=== PATIENT | female | born 1945 | race Caucasian/White ===

== ENCOUNTER 2020-03-03 17:35 | Observation (INO) | payer MEDICARE, SELFPAY ==
--- NOTE | ~2020-03-03 | XR_ITS ---
EXAMINATION: XR chest 1V portable DATE: 03/03/2020 18:22 INDICATION: Fever TECHNIQUE: frontal view of the chest was obtained. COMPARISON: None FINDINGS: The lungs are clear with no focal airspace opacities, pulmonary edema, pleural effusion or pneumothor ax. The cardiomediastinal silhouette is normal. Visualized bones and soft tissues are unremarkable. IMPRESSION: 1. No acute cardiopulmonary disease. Reviewed, dictated and finalized at location A.
--- NOTE | 2020-03-03 17:57 | ED.AMS ---
HPI - Altered Mental Status General Chief Complaint: Altered Mental Status Stated Complaint: fever Source: family ([id number]) Mode of arrival: EMS Limitations: altered mental status History of Present Illness HPI narrative: [id number] is the source of information. This 74-year-old female with a history of type 2 diabetes, seizure disorder, depression hypothyroidism, hyperlipidemia developed a temperature of 101.8 yesterday. Her behavior was normal until 4:30 PM. today when her temperature was 102 at which time she was sitting in a chair covered with a blanket, shivering. Her normal state is described as bubbly and cheerful. She moved in with her son about 9 days ago. She has not had her medicine since arriving. Related Data Home Medications Medication Instructions Recorded Confirmed glimepiride 4 mg PO BID 03/03/20 03/03/20 levetiracetam 500 mg PO BID 03/03/20 03/03/20 levothyroxine 50 mcg PO DAILY 03/03/20 03/03/20 metformin 1,000 mg PO BID 03/03/20 03/03/20 sertraline 50 mg PO DAILY 03/03/20 03/03/20 simvastatin 40 mg PO HS 03/03/20 03/03/20 Allergies Allergy/AdvReac Type Severity Reaction Status Date / Time No Known Drug Allergies Allergy Verified 03/03/20 22:23 Review of Systems Review of Systems: Narrative: All information was obtained from [id number] and is in the note. Because of mental status alteration unable to complete review of systems. [facility] Past Medical History Medical History (Updated 03/04/20 @ 06:13 by Gerardo Medrano MD) Depression Diabetes 1.5, managed as type 2 Seizure Social History Social History Years smoked: 20 Smoking status: Current some day smoker Tobacco type: cigarettes Second hand tobacco smoke exposure: Yes Additional smoking assessment comments: Patient states that she currently smokes but not daily Alcohol intake: never Substance use: never Gender identity (if verbalized by the patient): Female Spiritual care concerns: No Exam Const: General: no acute distress Other: Eyes are open. She answers I do not know to most questions. HENMT: Face and sinus: no sinus tenderness Mouth: Yes moist mucous membranes Eyes: Conjunctivae: conjunctivae normal EOM: EOMs intact bilaterally Neck: Neck: no lymphadenopathy Other: Neck is supple Chest: Chest palpation & inspection: normal inspection of the chest Resp: Effort & Inspection: normal respiratory effort and not tachypneic Auscultation: clear to auscultation bilaterally Cardio: Rate: regular rate Rhythm: regular rhythm GI: GI Palp: Yes Soft to palpation, No Tenderness to palpation present (GI), No Guarding due to palpation present (GI) and No Rigid due to palpation Back/Spine/Pelvis: Back: no CVA tenderness Skin: Rashes: no rashes Wounds: no wounds Neuro: General: no focal motor deficits and CN's II-XI intact bilaterally Cranial nerves: Yes Nystagmus not present Speech: normal speech Other: oriented to place. She does not know her age or date of . She does not know why she is here. Extrem: General: normal to inspection and no pedal edema Psych: Appearance: grossly normal Affect: normal affect Attitude: cooperative Thought content: Yes Normal thought content present Course Course Emergency Course: IVF given in E.D. After 90 minutes patient lucid. Recalls developing chills earlier in day. Alert and oriented x 3. Because of altered mental status and fever, will admit for observation and IV antibiotics. Vital Signs Vital signs: Vital Signs Temperature 38.7 C H 03/03/20 17:58 Pulse Rate 94 03/03/20 17:58 Respiratory Rate 14 03/03/20 17:58 Blood Pressure 139/82 03/03/20 17:58 Pulse Oximetry 97 03/03/20 17:58 Temperature 36.7 C 03/04/20 04:00 Pulse Rate 63 03/04/20 04:00 Respiratory Rate 20 03/04/20 04:00 Blood Pressure 132/70 03/04/20 04:00 Pulse Oximetry 98 03/04/20 04:00 MDM - Altered Mental Status Medical R
[2020-03-03 17:58] VITALS: BP 139/82; PULSE 94; RESP 14; TEMP 38.7; O2SAT 97
[2020-03-03 18:12] LABS: Basophils Absolute Auto 0.03 K/mm3 (0.00-0.10); Basophils Percent Auto 0.3 % (0.0-1.0); Eosinophils Absolute Auto 0.01 K/mm3 (0.02-0.50); Eosinophils Percent Auto 0.1 % (1.0-6.0); Hematocrit 37.9 % (35.0-42.0); Hemoglobin 12.3 g/dL (11.7-13.8); Immature Granulocyte Absolute 0.03 K/mm3 (0.00-0.00); Immature Granulocyte Percent A 0.3 % (0.0-0.0); Lymphocytes Percent Auto 7.5 % (18.0-42.0); Mean Corpuscular HGB Conc 32.5 g/dL (32.0-36.0); Mean Corpuscular Hemoglobin 28.6 pg (27.0-31.0); Mean Corpuscular Volume 88.1 fL (78.0-102.0); Mean Platelet Volume 11.2 fl (9.2-11.8); Monocytes Absolute Auto 0.86 K/mm3 (0.10-0.90); Monocytes Percent Auto 9.2 % (2.0-11.0); Neutrophils Absolute Auto 7.7 K/mm3 (1.7-7.2); Neutrophils Percent Auto 82.6 % (50.0-70.0); Platelet Count Result 232 K/mm3 (150-420); Red Cell Distribution Width 12.1 % (11.6-14.4); White Blood Count 9.3 K/mm3 (4.8-10.8)
--- NOTE | 2020-03-03 18:15 | ECG_ITS ---
Measurements Intervals [place] Rate: 93 P: 33 AR: 149 QRS: -22 QRSD: 74 T: 37 QT: 339 QTc: 423 Interpretive Statements SINUS RHYTHM BORDERLINE T WAVE ABNORMALITY- DIFFUSE LEADS BASELINE ARTIFACT- II, III, AVF BORDERLINE ECG Electronically Signed On 03-05-2020 7:28:48 CDT by Tyler Mahan D.O.
[2020-03-03] MEDS: SODIUM CHLORIDE 0.9% IV 1,000 ML 999 ML IV CONT (18:19)
[2020-03-03 18:27] LABS: Alanine Aminotransferase 17 U/L (14-59); Albumin Level 3.2 g/dL (3.4-5.0); Alkaline Phosphatase 89 U/L (46-116); Anion Gap 15.1 mmol/L (7-16); Aspartate Amino Transferase 13 U/L (15-37); Bilirubin,Total 0.5 mg/dL (0.00-1.00); Blood Urea Nitrogen 15 mg/dL (7-18); Calcium 8.8 mg/dL (8.5-10.1); Carbon Dioxide 26 mmol/L (21-32); Chloride 98 mmol/L (98-108); Estimated Glomerular Filt Rate 43; Glucose 280 mg/dL (70-99); Osmolality Calculated 290 mOsm/kg (285-295); Potassium 4.1 mmol/L (3.5-5.1); Sodium 135 mmol/L (136-145); Total Protein 7.3 g/dL (6.4-8.2)
[2020-03-03 18:32] LABS: Lactic Acid 1.3 mmol/L (0.4-2.0)
[2020-03-03 18:38] LABS: Thyroid Stimulating Hormone 1.11 uIU/mL (0.36-3.74)
[2020-03-03 18:57] LABS: Troponin I < 0.02 ng/mL (0.00-0.056)
[2020-03-03] MEDS: ACETAMINOPHEN 325 MG TABLET 650 MG PO (19:02)
[2020-03-03 19:04] LABS: Amphetamine Screen Urine Negative (Negative); Barbiturate Screen Urine Negative (Negative); Benzodiazepines Screen Urine Negative (Negative); Cannabinoid Screen Urine Negative (Negative); Cocaine Screen Urine Negative (Negative); Methadone Screen Urine Negative (Negative); Opiate Screen Urine Negative (Negative); Phencyclidine Screen Urine Negative (Negative)
[2020-03-03 19:07] LABS: Add Urine Microscopic? YES; Appearance Urine Cloudy (Clear); Bilirubin Urine Negative (Negative); Blood Urine 1+ (Negative); Color Urine Yellow (Yellow); Glucose Urine UA 1+ (Negative); Ketones Urine Trace (Negative); Leukocyte Esterase Ur 1+ (Negative); Nitrate Urine Negative (Negative); Protein Urine Trace (Negative); Urobilinogen Urine 0.2 mg/dL (0.2-1.0)
[2020-03-03 19:13] LABS: WBC Urine 21-30 /hpf (0-3)
[2020-03-03 19:14] LABS: Bacteria Urine 3+ /hpf; Mucus Urine None seen /lpf; Squamous Epithelial Cell Urine Rare /hpf (Few)
[2020-03-03 20:31] VITALS: BP 139/74; PULSE 87; RESP 15; O2SAT 100
[2020-03-03 20:40] VITALS: BP 126/68; PULSE 79; RESP 18; TEMP 37.4; O2SAT 97
--- NOTE | 2020-03-03 20:40 | ADMGEN ---
This patient, Que Almaguer, was admitted to 2nd Floor Room 211-1. Patient/family oriented to hospital policies and general routines including ID bracelet, bed and alarms, visiting hours, pain management, procedures, bathroom and other care routines, personal items, smoking policy, room service/diet, and visiting hours. Valuables list has been completed. Information on how to activate the Rapid Response Team has been discussed. Patient/Family are encouraged to report perceived risks to care and to ask questions if they do not understand what they are told or what they should do.
[2020-03-03 21:00] VITALS: BMI 33.9
--- NOTE | 2020-03-03 21:00 | PC.NURSE ---
Patient recently moved from [facility] and moved in with her son, Marie and her daughter in law, Alyssa. She does not have a PCP in the area yet. She states that she has been seeing a Dr. Dow in [place]. She has a daughter, Shanae Rose, in [place] that we are to give no information to per the patient. PAtient gave Florian as a password.
[2020-03-03] MEDS: SIMVASTATIN 10 MG TABLET 40 MG PO (22:53)
[2020-03-03] MEDS: SODIUM CHLORIDE 0.9% IV 1,000 ML 125 ML IV CONT (22:54)
[2020-03-03 23:28] LABS: Glucose Point of Care 308 (65-105)
[2020-03-04] VITALS: BP 128/70; PULSE 60; RESP 18; TEMP 36.4; O2SAT 97
[2020-03-04 04:00] VITALS: BP 132/70; PULSE 63; RESP 20; TEMP 36.7; O2SAT 98
[2020-03-04] MEDS: LEVOTHYROXINE SODIUM 50 MCG TABLET PO (05:14)
[2020-03-04] MEDS: SODIUM CHLORIDE 0.9% IV 1,000 ML 125 ML IV CONT (06:33)
[2020-03-04 08:00] VITALS: BP 142/78; PULSE 64; RESP 18; TEMP 36.8; O2SAT 97
[2020-03-04] MEDS: SERTRALINE HCL 50 MG TABLET PO (08:47)
[2020-03-04] MEDS: levETIRAcetam 500 MG TABLET PO (08:47)
[2020-03-04] MEDS: ENOXAPARIN 40 MG/0.4 ML SYRINGE SUB-Q (08:47)
--- NOTE | 2020-03-04 08:51 | PM.IMHP ---
H&P: HPI History of Present Illness Chief complaint: fever Narrative: Que Almaguer is a 74 year old female admitted due to altered mental status via EMS after her son Marie and [id number] Alyssa called them. Que is a 74-year-old female with a history of type 2 diabetes, seizure disorder, depression hypothyroidism, and hyperlipidemia. In the ED she was diagnosed with acute pyelonephritis, acute UTI, altered mental status. She developed a temperature of 101.8 yesterday. Her behavior was normal until 4:30 PM. yesterday when her temperature was 102, at which time she was sitting in a chair covered with a blanket, shivering. Her normal state is described as bubbly and cheerful. She moved in with her son about 9 days ago. She had been living with her daughter in [place], [place], but her daughter did not bring her medications with her to her son Marie's home. She has not had her medicine since arriving. She last filled her prescriptions in January 2020 and received a 90 day supply. Today I have examined the patient Que, she is alert and oriented x3, I actually assisted her from the chair to her bed and she did fairly well. I had physical therapist evaluate her for discharge planning, he stated she was safe to go home with her walker but he would recommend outpatient physical therapy which I have ordered at discharge. she has not had any altered mental status according to the nursing staff since her admission. Also no sign of seizures. I have ordered a full neuro check to be done and documented today. As well as orthostatics. She does not appear to be severely depressed either, is easy to talk to and pleasant in conversation. I did speak to her daughter in-law reset this morning who stated that Que checked her blood sugars every morning as soon as she was awake, and that they were controlled and less than 200 at their house. I found that odd since she had been without her metformin and her Glimepiride for the last 9 days. So I checked an A1c and found to be 8.2. I will discharge her on metformin a 1000 mg p.o. b.i.d., but will hold the glimepiride to avoid hypoglycemia and also give her kidneys time to recover. Her creatinine at admission yesterday was 1.21 and it has improved today to 1.13. I have instructed her to check her glucose levels at home twice a day, documenting them in a log, so that she can discuss them with her new PCP Dr. Godfrey. She has improved well with the IV fluids and will need to stay hydrated after discharge. Her UA showed a significant urinary tract infection, urine cultures and blood cultures remain pending. We will discharge her today on Cipro as she would like to go home and is hemodynamically stable enough to do so. She was given a 750 mg dose of Levaquin last night, so I will continue her on 500 mg of Cipro daily for the next 7 days to treat her UTI. Her white count on admission was 9.3 and today 7.1. She had a fever at admission but none since. Her troponin and TSH and urine tox screens are all clear and within normal limits. Her EKG was sinus rhythm. Her chest x-ray was clear with no acute findings. She has had no cough, her lungs sound clear, but there is no way to know she has been exposed to any other COVID positive people, so she has been COVID tested and those results are pending. Marie and Alyssa are at phone # [phone]. Review of Systems Review of Systems: All systems reviewed & are unremarkable except as noted in HPI and below Constitutional: Constitutional: Reports as per HPI, Reports chills, Denies excessive sweating, Reports fever(s), Denies headache(s), Denies increased appetite, Reports malaise, Denies snoring, Reports weakness and Denies weight gain Eyes: Eyes: Reports as per HPI, Denies exophthalmos, Denies diplopia, Denies floaters and Denies loss of peripheral vision ENT: Reports as per HPI, Denies facial pain, Denies headache(s), Denies epistaxis, Denies odynophagia and Denies
[2020-03-04 09:01] VITALS: BP 131/63; PULSE 61
[2020-03-04 11:48] LABS: Glucose Point of Care 287 (65-105)
[2020-03-04 11:53] VITALS: BP 131/70; PULSE 73
[2020-03-04 11:54] VITALS: BP 135/63; PULSE 81; RESP 20; TEMP 37; O2SAT 96
[2020-03-04 12:40] LABS: Basophils Absolute Auto 0.02 K/mm3 (0.00-0.10); Basophils Percent Auto 0.3 % (0.0-1.0); Eosinophils Absolute Auto 0.04 K/mm3 (0.02-0.50); Eosinophils Percent Auto 0.6 % (1.0-6.0); Hematocrit 36.2 % (35.0-42.0); Hemoglobin 11.5 g/dL (11.7-13.8); Immature Granulocyte Absolute 0.02 K/mm3 (0.00-0.00); Immature Granulocyte Percent A 0.3 % (0.0-0.0); Lymphocytes Absolute Auto 1.34 K/mm3 (1.10-4.50); Lymphocytes Percent Auto 18.8 % (18.0-42.0); Mean Corpuscular HGB Conc 31.8 g/dL (32.0-36.0); Mean Corpuscular Hemoglobin 29.2 pg (27.0-31.0); Mean Corpuscular Volume 91.9 fL (78.0-102.0); Mean Platelet Volume 10.9 fl (9.2-11.8); Monocytes Absolute Auto 0.56 K/mm3 (0.10-0.90); Monocytes Percent Auto 7.9 % (2.0-11.0); Neutrophils Absolute Auto 5.1 K/mm3 (1.7-7.2); Neutrophils Percent Auto 72.1 % (50.0-70.0); Platelet Count Result 226 K/mm3 (150-420); Red Blood Count 3.94 M/mm3 (4.20-5.40); Red Cell Distribution Width 12.2 % (11.6-14.4); White Blood Count 7.1 K/mm3 (4.8-10.8)
[2020-03-04 12:49] LABS: Hemoglobin A1C 8.2 % (<5.7)
[2020-03-04 13:01] LABS: Alanine Aminotransferase 16 U/L (14-59); Albumin Level 2.8 g/dL (3.4-5.0); Alkaline Phosphatase 87 U/L (46-116); Aspartate Amino Transferase 15 U/L (15-37); Bilirubin,Total 0.4 mg/dL (0.00-1.00); Blood Urea Nitrogen 12 mg/dL (7-18); Calcium 7.8 mg/dL (8.5-10.1); Carbon Dioxide 30 mmol/L (21-32); Chloride 104 mmol/L (98-108); Estimated Glomerular Filt Rate 47; Glucose 248 mg/dL (70-99); Osmolality Calculated 299 mOsm/kg (285-295); Sodium 141 mmol/L (136-145); Total Protein 6.3 g/dL (6.4-8.2)
--- NOTE | 2020-03-04 13:17 | PC.NURSE ---
4 Units humalog sc given left upper arm. Blood sugar 287
--- NOTE | 2020-03-04 14:11 | PM.DS ---
DS: Diagnosis Admitting Diagnosis Admitting Diagnosis: Other abnormalities of gait and mobility Discharge Diagnosis (1) UTI (urinary tract infection): Code(s): N39.0 - Urinary tract infection, site not specified Status: Acute Assessment and Plan: her urinalysis was positive for UTI urine and blood cultures have been collected and are pending she was treated with 750 mg of Levaquin IV last night she has been rehydrated with IV fluids she is to follow-up with a primary care provider and discuss her urine culture results with him she is to continue controlling her daily glucose levels through glucometer checks and metformin dosing as well as follow-ups to her PCP she may also take dhca-fqw-gvuxpwy cranberry extract her white count is 9.3 at admission has improved to 7.1 today, she had a fever at her admission but none since she will be discharged on 500 mg p.o. Cipro daily for 7 days and encouraged to stay well hydrated with oral fluids (2) Acute renal failure: Code(s): N17.9 - Acute kidney failure, unspecified Status: Acute Assessment and Plan: her creatinine at admission was 1.21 and that improved today to creatinine of 1.13 currently holding glimepiride due to her renal dysfunction at admission her blood pressures and MAPs are adequate and her heart rate is within normal limits, her troponin was negative. her llkhzuuv-ea-goc Alyssa denied any history of kidney stones and denied any history of renal failure her vtigdywf-ia-zjd Alyssa stated that they will be requesting medical records from her physician Dr. Dow in [place] no flank pain at this time recovering from dehydration and UTI And has received IV fluids, taking in over 1 L since admission she will need to continue monitoring her renal function through her primary care provider after discharge (3) AMS (altered mental status): Code(s): R41.82 - Altered mental status, unspecified Status: Acute Assessment and Plan: Hemodynamically stable with appropriate vital signs neurological check documented and within normal limits orthostatic blood pressures and vital Signs completed and without concerning changes no signs of seizures TSH is within normal limits at 1.11, urine tox screen is negative for any concerns. , her lactic is 1.3 and her LFTs are all within normal limits patient with appropriate neuro status, A&O x3, health history recall is appropriate today understanding and conversing with nursing staff appropriately throughout the day during conversations she is to follow-up with a new primary care provider Dr. Godfrey with her son's assistance she is to be discharged into her son and mtqpzejz-bi-wfr's 11/05 care DS: Summary Time Spent with Patient Time attestation: Total time spent providing and/or coordinating discharge services: Exam Const: General: comfortable, no acute distress and confusion Orientation/consciousness: confusion Other: HENMT: Face and sinus: no sinus tenderness Mouth: Yes moist mucous membranes Eyes: General: appearance normal, both eyes and all related structures Conjunctivae: conjunctivae normal Pupils: Equal, round and reactive pupils present EOM: EOMs intact bilaterally Neck: Neck: no lymphadenopathy Other: Neck is supple Chest: Chest palpation & inspection: normal inspection of the chest Resp: Effort & Inspection: normal respiratory effort and not tachypneic Auscultation: clear to auscultation bilaterally, no crackles, no rales, no rhonchi, no wheezes and lung sounds not diminished Cardio: Rate: regular rate, not bradycardic and not tachycardic Rhythm: regular rhythm Heart sounds: no murmurs GI: Inspection: non-distended Auscultation: normal bowel sounds and bowels sounds normal : General: Yes no CVA tenderness Urinary Catheter: Urinary Catheter: urine clear Back/Spine/Pelvis: Back: no CVA tenderness Skin: General skin exam: normal color Rashes: no r
--- NOTE | 2020-03-05 00:10 | PM.EVENT ---
Event Note Event Note Event Note: Patient states he feels much better. She denies flank pain, nausea, vomiting and fever. Alert and oriented. Sitting at breakfast. Regular rate rhythm heart murmur or gallop. Lungs clear to auscultation bilaterally. Abdomen is soft and nontender. Mild bilateral lower extremity. In edema. Extremities are warm dry and pink. May continue UTI treatment at home with close follow-up. I have examined the patient reviewed the chart. I discussed the patient's care with A Tevin PHILLIPS and agree with her assessment and plan.
== END 2020-03-04 14:25 | disposition home or self-care (01) ==
LOC: CHSED 18:16 → CHS2ND 20:09
PROVIDERS: Nurse Practitioner; Admitting Provider Family Medicine; Emergency Provider Family Medicine; Visit Provider Family Medicine
DX: N39.0 Urinary tract infection, site not specified (principal); E86.0 Dehydration; E11.9 Type 2 diabetes mellitus without complications; E03.9 Hypothyroidism, unspecified; E78.5 Hyperlipidemia, unspecified; R56.9 Unspecified convulsions; F32.9 Major depressive disorder, single episode, unspecified; F17.210 Nicotine dependence, cigarettes, uncomplicated; B96.20 Unspecified Escherichia coli [E. coli] as the cause of diseases classified elsewhere
CPT/HCPCS: 51701; 36415; 71045; 80053; 80307; 81001; 83036; 83605; 84443; 84484; 85025; 87040; 87077; 87086; 87088; 87186; 93005; 96361; 96365; 96372; 97161; 99283; 99285; A9270; G0378; J1650; J1815; J1956; J7030

== ENCOUNTER 2020-03-06 13:00 | Outpatient (RCR) | payer MEDICARE, SELFPAY ==
--- NOTE | 2020-03-06 14:02 | OTOPEVAL ---
Thank you for referring Que Almaguer to [facility]. Please review, sign, date and return this plan of care FELIX. I agree with and certify that the following plan of care is medically necessary. Referring Physician Date Admitting Provider: Attending Provider: Terra Abarca NP Referring Provider: *OT Outpatient Evaluation Start: 03/06/20 13:05 Freq: Status: Active Protocol: [place] 03/06[place] 13:05 [facility] [place]06/[place] 14[place] [facility] [id number] Therapy Assessment Status Assessment Status Assessment Status Evaluation Outpatient Past Medical History Neurological History Hx Seizures Yes Cardiovascular History Hx Hypercholesterolemia Yes Respiratory History Hx Respiratory Disorders No Significant History Gastrointestinal History Hx Gastrointestinal Disorders No Significant History Genitourinary History Hx Genitourinary Disorders No Significant History Hematological History Hx Hematological Disorders No Significant History Endocrine History Hx Diabetes Yes Hx Hypothyroidism Yes HEENT History Hx HEENT Disorders No Significant History Integumentary History Hx Skin Disorders No Significant History Reproductive History Hx Reproductive Disorders No Significant History Psychosocial History Hx Depression Yes Pain History History of Any Previous or Ongoing No Significant History Instance of Pain Anesthesia History Hx Anesthesia Reactions No Significant History Evaluation Information Problem Diagnosis weakness Onset 03/04/20 Subjective Information Patient reports that the Query Text:As Reported By Patient/ doctor is making her do Family therapy secondary to her not doing much at home. Patient reports that she was recently in the hospital secondary to high blood sugar. Patient reports that she needs to start helping more around the house. Patient reports that she would like to be able to do more chores around the house. Prior Level of Function Activity Level (Last 3 Months) Hand Dominance Right Activity of Daily Living Ability Independent Indoor/Home Mobility Independent Community Mobility Independent Stairs Ability Independent Functional Cognition (Planning, Shopping Independent , Taking Medications) Cooking No Cleaning
--- NOTE | 2020-03-06 14:03 | OTOPEVAL ---
Thank you for referring Que Almaguer to [facility]. Please review, sign, date and return this plan of care FELIX. I agree with and certify that the following plan of care is medically necessary. Referring Physician Date Admitting Provider: Attending Provider: Terra Abarca NP Referring Provider: *OT Outpatient Evaluation Start: 03/06/20 13:05 Freq: Status: Active Protocol: Document 03/06/20 13:05 [facility] [place]Rec[place] 03/06/[place] 14:00 [facility] [id number] Therapy Assessment Status Assessment Status Assessment Status Evaluation Outpatient Past Medical History Neurological History Hx Seizures Yes Cardiovascular History Hx Hypercholesterolemia Yes Respiratory History Hx Respiratory Disorders No Significant History Gastrointestinal History Hx Gastrointestinal Disorders No Significant History Genitourinary History Hx Genitourinary Disorders No Significant History Hematological History Hx Hematological Disorders No Significant History Endocrine History Hx Diabetes Yes Hx Hypothyroidism Yes HEENT History Hx HEENT Disorders No Significant History Integumentary History Hx Skin Disorders No Significant History Reproductive History Hx Reproductive Disorders No Significant History Psychosocial History Hx Depression Yes Pain History History of Any Previous or Ongoing No Significant History Instance of Pain Anesthesia History Hx Anesthesia Reactions No Significant History Evaluation Information Problem Diagnosis weakness Onset 03/04/20 Subjective Information Patient reports that the Query Text:As Reported By Patient/ doctor is making her do Family therapy secondary to her not doing much at home. Patient reports that she was recently in the hospital secondary to high blood sugar. Patient reports that she needs to start helping more around the house. Patient reports that she would like to be able to do more chores around the house. Prior Level of Function Activity Level (Last 3 Months) Hand Dominance Right Activity of Daily Living Ability Independent Indoor/Home Mobility Independent Community Mobility Independent Stairs Ability Independent Functional Cognition (Planning, Shopping Independent , Taking Medications) Cooking No Cleaning
--- NOTE | 2020-03-08 09:45 | PTOPEVAL ---
Thank you for referring Que Almaguer to [facility]. Please review, sign, date and return this plan of care FELIX. I agree with and certify that the following plan of care is medically necessary. Referring Physician Date Admitting Provider: Attending Provider: Terra Abarca NP Referring Provider: *PT Outpatient Evaluation Start: 03/06/20 13:56 Freq: Status: Active Protocol: Document 03/06/20 13:56 [facility] (Rec: 03/06/20 14:25 [facility] [id number]) Therapy Assessment Status Assessment Status Assessment Status Evaluation Outpatient Past Medical History Neurological History Hx Seizures Yes Cardiovascular History Hx Hypercholesterolemia Yes Respiratory History Hx Respiratory Disorders No Significant History Gastrointestinal History Hx Gastrointestinal Disorders No Significant History Genitourinary History Hx Genitourinary Disorders No Significant History Hematological History Hx Hematological Disorders No Significant History Endocrine History Hx Diabetes Yes Hx Hypothyroidism Yes HEENT History Hx HEENT Disorders No Significant History Integumentary History Hx Skin Disorders No Significant History Reproductive History Hx Reproductive Disorders No Significant History Psychosocial History Hx Depression Yes Pain History History of Any Previous or Ongoing No Significant History Instance of Pain Anesthesia History Hx Anesthesia Reactions No Significant History Evaluation Information Problem Diagnosis weakness, unsteady gait Onset 03/04/20 Subjective Information patient reports she was just Query Text:As Reported By Patient/ recently in the hospital for Family AMS and confusion. she reports she reported weakness in the hospital and doctors referred her to outpatient therapy. she reports she has not had any falls. she reports she does not drive any longer. she reports she does not use any AD. she reports she has 4 steps to enter and leave the home. Prior Level of Function Comments Additional Prior Level of Function patient reports she has been Comments having issues with her balance and walking/steadiness prior to hospital admittance. she reports she lives at home with her sister in law and her son
--- NOTE | 2020-04-02 10:14 | PCPTNOTE ---
04/02/20-pt cancelled appointment secondary to transportation issue. -.
== END 2020-04-17 13:10 | disposition home or self-care (01) ==
LOC: CHSPT 13:00
PROVIDERS: Visit Provider Nurse Practitioner
DX: R26.89 Other abnormalities of gait and mobility (principal); R53.1 Weakness
CPT/HCPCS: 97110; 97161; 97165; 97530; 97535